=== PATIENT | male | born 1980 | race African-American/Black ===

== ENCOUNTER 2016-07-09 22:04 | Inpatient (IN) | payer OTHER ==
[~2016-07-09] VITALS: Ht 177.8 cm; Wt 86.2 kg
--- NOTE | ~2016-07-09 | H ---
[facility] [address] [place] [address] HISTORY AND PHYSICAL Name: GWYN TEIXEIRA Room #: 533-P ADM IN M.R.#: [id number] Admission: 07/10/16 Attend Phys: Minh Barcenas MD Discharge: Date of : 78 Report #: [id number] THIS REPORT FOR: //name// CC: FAM unknown Minh Barcenas DATE OF SERVICE: 07/10/2016 CHIEF COMPLAINT: Intractable back pain. HISTORY OF PRESENT ILLNESS: The patient is a 36-year-old male who has had prior back surgery. He states he was at work yesterday when fell on to his buttocks in his low back. He states he has had severe worsening pain in his left leg with any kind of movement causes severe pain. Also, had some burning and tingling underneath the foot. PAST MEDICAL HISTORY: Significant for: 1. Intractable back pain. 2. Asthma. Apparently had an MN in the past and apparently has had a seizure in the past, although he is not taking any medicines for that. MEDICATIONS: Only aspirin 81 mg a day. ALLERGIES: No known drug allergies. SOCIAL HISTORY: He is a nonsmoker, nondrinker, no recreational drugs. REVIEW OF SYSTEMS: CONSTITUTIONAL: No fever or chills. HEENT: No headaches or visual changes. CHEST: No chest pain, tightness in chest, shortness of breath, cough or sputum production. GASTROINTESTINAL: No nausea, vomiting, diarrhea or constipation. GENITOURINARY: No burning or frequency. EXTREMITIES: He has intractable back pain and left leg pain. No focal weakness or numbness. He has pain with straight leg raise. PHYSICAL EXAMINATION: VITAL SIGNS: Blood pressure 145/92, his pulse is 105, his respiratory rate is 16. His O2 sats are 100% on room air. GENERAL: The patient is awake, alert, in no acute distress. He does have some significant back pain. HEENT: His mucous membranes are moist. NECK: Supple, without adenopathy, thyromegaly or bruits. CHEST: Clear to auscultation. CARDIOVASCULAR: Regular, without murmur. [facility] [address] [place] [address] HISTORY AND PHYSICAL Name: GWYN TEIXEIRA Room #: 533-P [facility] IN .R.#: [id number] Admission: 07/10/16 Attend Phys: Minh Barcenas MD Discharge: Date of : 79 Report #: [id number] ABDOMEN: Soft, no masses. Bowel sounds are active. EXTREMITIES: The left leg shows severe discomfort with mild palpation in the bottom of the foot. He has severe pain with straight leg raise even an inch off the bed. He cannot flex the knee and flex the hip. He can move the feet equally. He has hyperesthesia in the bottom of the foot. otherwise intact. A CT scan of his lumbar spine was done which shows no acute fracture. There is disc bulge noted at L4-L5 and L5-S1. An MRI has not been obtained at this point. ASSESSMENT: Acute intractable back pain with history of prior back problems, suspect disc bulging versus herniation. PLAN: We will give him IV Solu-Medrol, IV pain meds and get MRI to see if he needs any further intervention. His surgeon was at [facility]. If he does emergent, we may transfer from there, although he does not appear to be an emergency case as he has no focal weakness, numbness or bowel incontinence. By: [id number] Bijan Hankins MD /nt
--- NOTE | ~2016-07-09 | H ---
[facility] [address] [address] HISTORY AND PHYSICAL Name: GWYN TEIXEIRA Room #: 533-P ADM IN M.R.#: [id number] Admission: 07/10/16 Attend Phys: Minh Barcenas MD Discharge: Date of : 79 Report #: [id number] THIS REPORT FOR: //name// CC: FAM unknown Minh Barcenas ATTENDING PHYSICIAN: Minh Barcenas MD PRIMARY CARE PHYSICIAN: Dr. Delgado. CHIEF COMPLAINT: Severe back pain. HISTORY OF PRESENT ILLNESS: The patient is a 36-year-old -[place] male with a history of chronic back pain. He had an injury at work in 2013 and that injured his lumbar spine. He ended up having surgery in 2014. At the time of that surgery they told him at some point he was going to need surgery on his L5-S1, but he never did have that surgery and has continued to have back pain with radiculopathy symptoms for the last few years. He always has some numbness of the left leg. He always has some shooting pains down his left leg intermittently. He also has feeling of pins and needles in his left foot as well as some testicular pain. He had been on pain medications as well as Neurontin regularly for the last few years, but he quit all his meds 3-4 months ago because he really did not feel like anything was working. He sees the neurosurgeon at [facility] as well as pain specialist there. He was turned off by future surgery because he said that 2 doctors were not agreeing on what sort of further treatment he should have. He said one doctor wanted to do surgery and another one wanted to place pain stimulator instead. He had a fall yesterday in which he was walking and his left leg gave out. He landed on his left hip. Since then, he has had more severe lumbar pain and left leg pain. His says she is worried about him because he has been losing weight and does not eat much. He says he has no appetite because he is always in pain. He initially came in the ER, rating his pain 10/10. He now rates his pain 7/10 after pain medication was given in the ER. The patient denies any loss of bladder or bowel control. He is unable to walk due to pain. PAST MEDICAL HISTORY: Asthma, hypertension. PAST SURGICAL HISTORY: Lumbar surgery 2014, tonsillectomy. ALLERGIES: None. HOME MEDICATIONS: Aspirin 81 mg daily. SOCIAL HISTORY: The patient is on disability since his surgery. He lives at home with his . Denies any tobacco, alcohol or drug use. FAMILY HISTORY: His mother is alive with diabetes and history of breast cancer. [address] [address] HISTORY AND PHYSICAL Name: GWYN TEIXEIRA Room #: 533-P [facility] IN M.R.#: [id number] Admission: 07/10/16 Attend Phys: Minh Barcenas MD Discharge: Date of : 79 Report #: [id number] Father is and had a cerebral aneurysm. REVIEW OF SYSTEMS: Twelve point review of systems was reviewed with the patient and otherwise negative unless stated in the HPI. PHYSICAL EXAMINATION: GENERAL: The patient is an alert male in no acute distress. VITAL SIGNS: Temperature is 37.1, heart rate 86, respirations 16, blood pressure is 145/92, oxygen 100% on room air. HEENT: PERRLA. Sclerae are nonicteric. Oral mucosa is pink and moist. NECK: Supple, no JVD noted. CARDIAC: Normal S1, S2. No murmurs, rubs or gallops. RESPIRATORY: Breath sounds are clear bilaterally. No wheezing or rhonchi. Breathing is nonlabored. ABDOMEN: Soft, nontender, nondistended with positive bowel sounds. VASCULAR: No edema noted. Pedal pulses are 2+. NEUROLOGIC: The patient is alert and oriented x 3. Speech is clear. He does have difficulty with left straight leg raise because of severe low back pain. There is decreased sensation in his left foot. Pedal pulses are 2+ bilaterally and I did not have him ambulate. SKIN: Intact. No rashes or lesions. LABS AND DIAGNOSTICS: No labs had been obtained. CT was done in the ER. It shows no fractures. There is mild disc bulging of L4-L5 and L5-S1. ASSESSMENT AND PLAN: 1. Acute on chronic lumbar pain with left leg radiculopathy. We will check an MRI in the morning. Based on the severity of the MRI, we may need to have neurosurgery evaluate. He is open to getting another opinion regarding having further surgery on his back or not. Continue with pain control. We will add scheduled ibuprofen as well as prednisone daily and continue muscle relaxer and restart Neurontin. 2. Hypertension. He is not on any current meds for this. Continue to monitor. 3. Deep venous thrombosis prophylaxis, place sequential compression devices. We will continue to follow the patient closely throughout the hospitalization and make changes based on clinical status. <ELECTRONICALLY SIGNED> By: SELMA Velasquez 07/11/16 0518 [id number] [id number] Leslie Baptiste, BOAT RENTAL CLERK /nt
[~2016-07-09 22:04] MED LIST: ADULT LOW DOSE81 MG PO
[2016-07-09 22:08] VITALS: BP 145/92
[2016-07-10 01:20] VITALS: BP 143/99
[2016-07-10 01:30] VITALS: BP 148/88
[2016-07-10 06:35] LABS: HEMATOCRIT 45.4 % (42.0-52.0); HEMOGLOBIN 14.8 gm/dL (14.0-18.0); MCH 28.8 pg (26.0-34.0); MCHC 32.6 g/dL (28.0-37.0); MCV 88.4 fL (80.0-100.0); RBC 5.14 mil/uL (4.50-6.00); RDW 12.4 % (10.5-14.5); WBC 7.8 thou/uL (4.0-11.0)
[2016-07-10 06:54] LABS: CALCIUM 9.8 mg/dL (8.5-10.1); CREATININE 1.2 mg/dL (0.7-1.3); POTASSIUM 4.1 mmol/L (3.5-5.1)
[2016-07-10 07:19] VITALS: BP 156/80
[2016-07-10 16:44] VITALS: BP 185/97
[2016-07-10 20:00] VITALS: BP 152/79
[2016-07-11 04:00] VITALS: BP 139/70
[2016-07-11 07:24] VITALS: BP 128/78
[2016-07-11] MEDS ORDERED: ZANAFLEX4 MG PO (12:12)
[2016-07-11] MEDS ORDERED: IBUPROFEN 600600 M1 PO (12:12)
[2016-07-11] MEDS ORDERED: OXYCODONE HCL 55 MG PO (12:12)
[2016-07-11] MEDS ORDERED: MEDROLDOSEPACK PO (12:12)
[2016-07-11] MEDS ORDERED: NEURONTIN 300300 M1 PO (12:12)
[2016-07-11 12:18] VITALS: BP 128/78
== END 2016-07-11 13:55 | disposition home or self-care (01) | DRG 552 ==
LOC: ER 22:04 → EROBS 07-10 01:02 → 5S 07-10 01:02
PROVIDERS: Nurse Practitioner Acute Care
DX: M51.17 Intervertebral disc disorders with radiculopathy, lumbosacral region (principal); G89.29 Other chronic pain; M54.9 Dorsalgia, unspecified; I10 Essential (primary) hypertension; J45.909 Unspecified asthma, uncomplicated; M54.5 Low back pain; Z79.82 Long term (current) use of aspirin; Z83.3 Family history of diabetes mellitus; Z82.49 Family history of ischemic heart disease and other diseases of the circulatory system; Z80.3 Family history of malignant neoplasm of breast; I25.2 Old myocardial infarction
CPT/HCPCS: 10086

== ENCOUNTER → 2016-07-15 | Outpatient (CLI) | payer OTHER ==
[~2016-07-15] VITALS: Ht 175.3 cm; Wt 88.5 kg
[~2016-07-15] MED LIST changes: +IBUPROFEN 600600 M1 PO; +MEDROLDOSEPACK PO; +NEURONTIN 300300 M1 PO; +OXYCODONE HCL 55 MG PO; +ZANAFLEX4 MG PO
--- NOTE | ~2016-07-15 | HPC ---
[facility] [address] [place] [address] PAIN MANAGEMENT CONSULTATION Name: GWYN TEIXEIRA Room #: REG [facility] Sandhya#: [id number] Admission: 07/15/16 Attend Phys: Derrell Cota DO Discharge: Date of : 79 Report #: [id number] THIS REPORT FOR: //name// CC: [facility] physician/PCP Derrell Cota DATE OF SERVICE: 07/15/2016 HISTORY OF PRESENT ILLNESS: The patient is a 36-year-old gentleman, seen in consultation at the request of Dr. Hankins for evaluation of pain, low back and left leg. The patient presents to pain clinic today with his . We reviewed his ongoing history. The patient and his pieced his medical history together; he does present with no medical records other than from [facility] earlier this year. 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 In March 2013, he states he had acute exacerbation of pain, was taken via ambulance to the work compensation physician. He was never admitted to hospital, he was treated conservatively. It appears that he has been on disabililty since this time. About one-year later, he ultimately had a left L4-L5 hemilaminectomy at [facility]. He states that he really got no better following the surgery. [facility], it sounds like he had epidural injections, trigger point injections, TENS unit, and physical therapy. Ultimately, he discontinued treatment in November or December 2015. He states his pain was "manageable." Unfortunately, the pain did exacerbate without antecedent trauma or overuse earlier this year. He drove to the hospital and apparently, on 07/09/2016, when he got out of his car, his left leg gave out and he fell striking his back increasing the acute exacerbation of pain for which he was seeking help. He was admitted to the hospital for a short course. MRI was accomplished. He was discharged with a Medrol Dosepak, ibuprofen, tizanidine, and oxycodone. He presents to pain clinic today complaining of pain primarily low back, posterior buttock radiating to the left testicle, posterior aspect of his leg into his left foot with paresthesia in the sole of his foot. He rates his pain quite high at 7/10 on a 0-10 visual analog scale. Describes continuous, burning, shooting, aching, sharp, stabbing, and tender pain. Notes the pain is exacerbated with any and all movement. Medication has afforded some relief. He is seen in the company of his who is supportive. He is a bit diaphoretic throughout the exam secondary to pain. REVIEW OF SYSTEMS: Attached in the chart and gone over with the patient. He does not smoke, drink alcohol to excess. History of hypertension, on no [facility] [address] [place] [address] PAIN MANAGEMENT CONSULTATION Name: GWYN TEIXEIRA Room #: REG [facility] Sandhya#: [id number] Admission: 07/15/16 Attend Phys: Derrell Cota DO Discharge: Date of : 79 Report #: [id number] medications for same. Otherwise, enjoyed reasonably good health other than his chronic axial and lumbar radicular pain. He has been medically disabled since the initial injury of 2013. Only surgery with the aforementioned left L4-L5 hemilaminectomy in March 2014. Pain impact score is 57/70. PHYSICAL EXAMINATION: GENERAL: Reveals 5 feet 9 inches and 195 pounds gentleman. BMI is 28.8 kilograms per meter squared. Blood pressure is elevated at 172/101, pulse 99, respirations are 18, and room air oxygen saturation is 99%. NEUROLOGIC: Cranial nerves 2-12 are grossly intact. HEENT: Pupils are equal, reactive to light and accommodation. Extraocular muscles are intact. There is no nystagmus. Lateral gaze deviation. NECK: Cervical range of motion is full. Thyroid is unremarkable. MUSCULOSKELETAL: Upper extremity strength is 4-5/5 to all muscle groups tested, but resistance testing does exacerbate low back pain. HEART: Regular rate and rhythm without murmur. LUNGS: Clear to auscultation. EXTREMITIES: He has difficulty bearing weight on the left side. Markedly antalgic gait. Left dorsiflexion strength is dramatically limited 0-1. Lower extremity extension on the left is 2/5, hip flexion is 2-3/5. Plantar flexion is little better, perhaps 3/5. Right leg is much stronger 4/5 to all muscle groups tested. Patellar reflexes with isometric contractions 1/4 and symmetric. Achilles reflex absent on the left, 1/4 on the right. Straight leg raise is grossly positive bilaterally, much more reactive on the left than the right. SKIN: Integument is intact. DIAGNOSTIC STUDIES: I have reviewed the diagnostic findings including CT of the lumbar spine from 07/09/2016 noting L4-L5 to have bony abnormalities suggestive of previous left L4-L5 laminectomy. Subsequent MRI of the lumbar spine, 07/11/2016, notes L4-L5 to have disk desiccation with a broad-based disk bulge, left greater than right, disk abutting the ventral thecal sac, but without significant stenosis. No other dramatic abnormalities were found. ASSESSMENT: Symptomatic lumbar radiculopathy status post decompressive laminectomy with a fairly significant L4-L5 radicular pain pattern. The patient does not appear to be malingering. He is tachycardic and diaphoretic with the exam and he appeared to cooperate with the exam. RECOMMENDATIONS: 1. Discussion with the patient and his today about therapeutic options. We will continue nonsteroidal anti-inflammatory medication (ibuprofen 600 mg t.i.d.). I did offer renewal of his short acting opiate, oxycodone 5 mg 1 to 2 tablets up to 4 times a day, limit 100 tablets for 30 days. 2. We will proceed with epidural injection under fluoroscopy today given neural [address] [address] PAIN MANAGEMENT CONSULTATION Name: GWYN TEIXEIRA Room #: [facility] [id number] Admission: 07/15/16 Attend Phys: Derrell Cota DO Discharge: Date of : 79 Report #: [id number] tensioning symptoms and compromise on the MRI, however, modest. 3. Given the modest findings in the MRI, I would like an EMG of the left lower extremity to make sure we are not overlooking any other pathology including compromise in the lumbosacral plexus. Thank you for allowing me to participate in the patient's care, I will keep you abreast of his progress. PROCEDURE: Lumbar epidural injection under fluoroscopy. PROCEDURE NOTE: After both written and informed consent to include risk of spinal cord damage, increased pain, weakness and dural puncture, the patient was taken to the fluoroscopy suite, placed in the prone position. After sterile prep and drape, a skin wheal with lidocaine was raised. A 22-gauge epidural Tuohy needle was inserted in the midline at L4-L5 with good loss to resistance. Negative aspiration for cerebrospinal fluid or blood was noted. Then 1 mL of Omnipaque under biplanar fluoroscopy showed good spread within the epidural space. This was followed with 80 mg of triamcinolone plus 1 mL of 1.5% preservative-free Xylocaine, 0.5 mL Xylocaine was then injected to flush the needle; it was removed. The patient was monitored for an appropriate period of time and discharged in good and stable condition. <ELECTRONICALLY SIGNED> By: Derrell Cota DO 07/18/16 0806 [id number] Derrell Cota DO /nt
[2016-07-15 14:39] VITALS: BP 172/101
== END ==
LOC: PAIN 12:11
DX: M54.16 Radiculopathy, lumbar region (principal); I10 Essential (primary) hypertension

== ENCOUNTER → 2016-09-26 | Outpatient (CLI) | payer OTHER ==
[~2016-09-26] VITALS: Ht 177.8 cm; Wt 87.0 kg
[2016-09-26 14:02] VITALS: BP 159/93
== END | disposition home or self-care (01) ==
LOC: PAIN 08-05 05:49
DX: M54.16 Radiculopathy, lumbar region (principal); Z98.890 Other specified postprocedural states; M79.1 Myalgia; G62.9 Polyneuropathy, unspecified; I10 Essential (primary) hypertension; M48.06 Spinal stenosis, lumbar region

== ENCOUNTER → 2016-11-02 | Outpatient (CLI) | payer OTHER ==
[~2016-11-02] VITALS: Ht 177.8 cm; Wt 86.3 kg
[~2016-11-02] MED LIST changes: +AMITRIPTYLINE H25 M2 PO; +AMLODIPINE BESY10 MG PO; +COLACE100 MG PO; +PROBIOTIC1 EAC1 PO; +ZESTRIL20 MG PO
--- NOTE | ~2016-11-02 | HPC ---
[facility] [place] [address] [place] [address] PAIN MANAGEMENT CONSULTATION Name: GWYN TEIXEIRA [id number] Admission: 11/02/16 Attend Phys: Jolene Mora MD Discharge: Date of : 79 Report #: [id number] THIS REPORT FOR: //name// CC: [facility] physician/PCP Jolene FAULKNER DATE OF SERVICE: 11/02/2016 FOLLOWUP HISTORY: Mid and low back pain down into the buttocks, left leg, all the way to the foot, walking with a walker. FOLLOWUP HISTORY: The patient is a 36-year-old gentleman who has been seen in the pain clinic because of lumbar radiculopathy. He has undergone epidural steroid injection and continues to have pain, which is quite problematic. He is scheduled to undergo EMG evaluation in the near future. He was unable to go to his previously scheduled appointment. His sister . He has had surgery in the past. He has been told that he has a reherniation of the L4-L5 area. He also is experiencing some pain and discomfort down into his testicles. He notes weakness and buckling of his left leg. He describes the discomfort as 7-8. Pain is made worse by walking, standing, bending and other movements. He describes it as burning, shooting, aching, sharp, stabbing tenderness, numbness, tingling, which is radiating and throbbing down into his leg. IMPRESSION: 1. Symptomatic lumbar radiculopathy status post decompression laminectomy with ongoing L4 radicular pain with weakness. 2. Neuropathic pain syndrome. 3. Myelopathic lumbar radicular symptoms. 4. Weakness of left leg, L4 nerve distribution. 5. Hypertension. RECOMMENDATION: 1. The patient is scheduled to have an EMG of the lower extremities. This has been rescheduled. 2. We will renew his oxycodone, gabapentin. We will also start Elavil 25 mg 1 p.o. at bedtime to help with the lancinating and shooting pain, which he is experiencing. He will call us if he has any problems with the medications. We would like to thank you for letting us participate in his care. We hope he continues to improve. By: [id number] Jolene Mora MD /shawn
[2016-11-02 09:49] VITALS: BP 146/95
== END | disposition home or self-care (01) ==
LOC: PAIN 10-24 06:39
DX: Z76.0 Encounter for issue of repeat prescription (principal); M50.20 Other cervical disc displacement, unspecified cervical region; M54.16 Radiculopathy, lumbar region; M62.81 Muscle weakness (generalized); I10 Essential (primary) hypertension; Z98.890 Other specified postprocedural states

== ENCOUNTER → 2016-12-01 | Outpatient (CLI) | payer OTHER ==
[~2016-12-01] VITALS: Ht 177.8 cm; Wt 86.5 kg
[~2016-12-01] MED LIST changes: +TRILEPTAL150 MG PO
--- NOTE | ~2016-12-01 | HPC ---
[facility] [place] [address] PAIN MANAGEMENT CONSULTATION Name: GWYN TEIXEIRA Room #: REG Fabrice Arthur#: [id number] Admission: 12/01/16 Attend Phys: Derrell Cota DO Discharge: Date of : 78 Report #: [id number] THIS REPORT FOR: //name// CC: [facility] physician/PCP Derrell Cota The patient is a 36-year-old gentleman being treated for lumbar radiculopathy status post decompressive laminectomy. Last seen in the pain clinic on 11/02/2016, we wrote for an EMG at that time. Returns to the pain clinic today, was seen for prolonged visit from 10:20-10:50. Greater than 50% of the visit was spent counseling the patient. He had had back surgery (left L4-L5 hemilaminectomy in March 2014). He had injured his back 1 year prior in March 2013, work related injury. Following the surgery in March 2014, he states he really never got much better though on further inquiry, he notes he had had bilateral lumbar radiculopathy and actually the right leg did get better following the surgery. He has had ongoing left leg electric type pain. We did an epidural injection when I first saw him on ____. In followup September 26, the patient noted that the epidural injection only afforded transient relief, specifically noting he "felt much better," but pain relief only helped for 1-1/2 weeks. At that visit, he still had ongoing significant pain, which he rated at 7 on a VAS, had subjective weakness on the left leg, noting he had fallen several times. Noted hyperpathia and allodynia of the foot. We reviewed his MRI from 07/11/2016, which noted L4-L5 had had a small broad-based disk bulge, left greater than right, foraminal components resulting in moderate left and mild right neural foraminal narrowing. L5-S1 noted a minor disk bulge without significant changes. With ongoing symptoms, I ordered EMG of left lower extremity. This was obtained. EMG from 11/25/2016, the needle EMG of the left lower extremity was essentially unremarkable. Lumbosacral paracentral muscles were not performed because of a prior decompressive laminectomy. PHYSICAL EXAMINATION: Today shows a pleasant 36-year-old gentleman frustrated with ongoing pain. Rates his pain at 7-8 on a VAS. Moderately antalgic gait. Blood pressure is little bit elevated at 154/90, pulse 96, respirations 18. He does have hyperpathia on the sole of the left foot, ____ diminished 2-point discrimination from about the ankle down in a sock-like fashion on the left foot. Right lower extremity is unremarkable. Positive straight leg raise at about 30 degrees on the left side. Diminished strength to dorsiflexion and plantarflexion on the left side. Lower extremity extension and hip flexion cause little bit of pain, but are generally symmetric. He is complaining of left testicular pain, which is episodic and lancinating pain on the left leg, which is episodic with burning dysesthesia. Hyperpathia and allodynia in the left foot; however, is chronic. [address] [address] PAIN MANAGEMENT CONSULTATION Name: GWYN TEIXEIRA Room #: REG CAREY Arthur#: [id number] Admission: 12/01/16 Attend Phys: Derrell Cota DO Discharge: Date of : 78 Report #: [id number] ASSESSMENT: At this point is neuropathic pain, complex regional pain syndrome type 1 (reflex sympathetic dystrophy) in a gentleman status post lumbar decompressive laminectomy with ongoing neuropathic pain. RECOMMENDATIONS: Long discussion with the patient and his today about therapeutic options. He is currently on a therapeutic dose of a calcium channel membrane stabilizing agent (gabapentin at 1800 mg a day), using oxycodone 5 mg p.r.n. up to 4 a day. We will start on amitriptyline 25 mg at bedtime with really no efficacy, that agent was started last month, we will discontinue it due to lack of efficacy. Today, we elected to start Trileptal 150 mg, gradually titrating to t.i.d. We talked about therapeutic options including lumbar sympathetic block. We will seek authorization for same. Again, the patient has neuropathic pain, compatible with CRPS type 1 on left lower extremity. He has failed conservative therapy including decompressive surgery, lumbar epidural injection, physical therapy, membrane stabilizing agents. We will likely try and do a series of two to three injections over a short course. If this affords good relief, we will continue medication management. If, however, he does not have adequate relief, we will likely move forward with spinal cord stimulator trial. The patient was discharged in good and stable condition after prolonged visit. Again, we started Trileptal today. We will seek authorization for left lumbar sympathetic block at earliest possible date. We will likely try and get a series of three injections over a very short course, i.e. 7-10 days. By: [id number] Derrell Cota DO /nt
[2016-12-01 10:03] VITALS: BP 154/90
== END ==
LOC: PAIN 06:09
DX: M54.16 Radiculopathy, lumbar region (principal)

== ENCOUNTER → 2016-12-05 | Outpatient (CLI) | payer OTHER ==
[~2016-12-05] VITALS: Ht 177.8 cm; Wt 87.3 kg
--- NOTE | ~2016-12-05 | HPC ---
[facility] [address] [place] [place] [address] PAIN MANAGEMENT CONSULTATION Name: GWYN TEIXEIRA Room #: REG CL Sandhya#: [id number] Admission: 12/05/16 Attend Phys: Derrell Cota DO Discharge: Date of : 78 Report #: [id number] THIS REPORT FOR: //name// CC: [facility] physician/PCP Derrell Cota The patient is a very pleasant 36-year-old gentleman being treated for symptomatic lumbar radiculopathy status post decompressive laminectomy with onset of fairly significant complex regional pain syndrome left lower extremity, status post lumbar laminectomy. Last visit, 12/01/2016, we elected to move forward with a series of lumbar sympathetic blocks. If this does not afford adequate relief, we will consider a spinal cord stimulator trial. The patient presents to pain clinic today for his initial injection. He notes the pain remains problematic in left leg, hyperpathia, allodynia. Subjective pain score is 7-8 on a VAS. PROCEDURE NOTE: Left lumbar sympathetic block under fluoroscopy. PROCEDURE: After written informed consent was obtained, the patient was taken to fluoroscopy suite, placed in prone position. After sterile prep and drape, skin wheal was raised. A 6 inch #22-gauge Chiba needle was placed to contact the inferior aspect of the L2 vertebral body from a left paramedian approach. With a biplanar fluoroscopy, needle was walked into the anterior most portion of vertebral body. Negative aspiration was accomplished. A 1 mL of Omnipaque was injected, which showed spread within the lumbar sympathetic gutter on AP and lateral projections. A 5 mL 0.5% preservative-free bupivacaine plus 5 mL of 1.5% preservative-free Xylocaine with 1:200,000 epinephrine plus 40 mg triamcinolone was injected. Needle was then withdrawn, area was cleansed, Band-Aid was applied. The patient monitored for an appropriate period of time, discharged in good and stable condition, noting subjective warmth in the left leg and foot. Follow up on Monday for lumbar sympathetic block #[address] Angel Mora and follow up on Monday for lumbar sympathetic block #3 with myself. Fluoroscopy time was under 20 seconds. By: [id number] Derrell Cota DO /nt
[2016-12-05 13:16] VITALS: BP 131/95
== END | disposition home or self-care (01) ==
LOC: PAIN 07:20
DX: M54.16 Radiculopathy, lumbar region (principal); G90.522 Complex regional pain syndrome I of left lower limb; Z98.890 Other specified postprocedural states; Z79.82 Long term (current) use of aspirin; Z79.899 Other long term (current) drug therapy

== ENCOUNTER → 2016-12-07 | Outpatient (CLI) | payer OTHER ==
[~2016-12-07] VITALS: Ht 177.8 cm; Wt 88.0 kg
--- NOTE | ~2016-12-07 | HPC ---
[facility] [place] [address] PAIN MANAGEMENT CONSULTATION Name: GWYN TEIXEIRA [id number]: 12/07/16 Attend Phys: Jolene Mora MD Discharge: Date of : 78 Report #: [id number] THIS REPORT FOR: //name// CC: [facility] physician/PCP Jolene Hankins MD DATE OF SERVICE: 12/16/2016 CHIEF COMPLAINT: Pain in the left leg. Still having difficulty walking and standing on it. FOLLOWUP HISTORY: The patient is a 36-year-old gentleman who has been seen in the pain clinic because of chronic pain involving his left leg. He is having symptoms consistent with complex regional pain syndrome. He underwent a lumbar sympathetic block a couple of days ago. He did note some change in his condition. He noted that for the first time in a long time, he noticed some warmth down into his leg. The patient has returned today for another lumbar sympathetic block. PHYSICAL EXAMINATION: Blood pressure is 142/97, pulse 83, respiratory rate 18, room air saturation is 100, height 5 feet 10 inches, weight 194 pounds, BMI is 27. The patient has pain and discomfort in the right leg with note of swelling, allodynia, hyperpathia and described the pain as 7/10. IMPRESSION: Chronic regional pain syndrome involving the left leg. RECOMMENDATIONS: We discussed treatment options with the patient. We have discussed lumbar sympathetic block by way of a lumbar sympathetectomy. He elects to proceed. PROCEDURE NOTE: The patient was placed in the prone position. Fluoroscopy was used to identify the L2 vertebral body. A skin wheal was placed. A 6 inch 22-gauge Chiba needle was then advanced into the anterior as expected the L2 vertebral body. Using a paramedian approach, the needle was placed in the appropriate position. Biplanar imaging was used. After aspiration a total of 1 mm opaque contrast was injected. After appropriate spread was noted, a total of 5 mL of 0.5% preservative free bupivacaine was injected and followed by 1.5 mL 5% Xylocaine free epi with 1:200,000 concentration. Total of 40 mg triamcinolone was injected as well. The needle was withdrawal. The patient was then taken and monitored in the recovery area for an appropriate amount of time. He remained in the pain clinic for an appropriate [place] [address] PAIN MANAGEMENT CONSULTATION Name: GWYN TEIXEIRA Room #: REG CAREY Arthur#: [id number] Admission: 12/07/16 Attend Phys: Jolene Mora MD Discharge: Date of : 78 Report #: [id number] follow up with Dr. Cota in the near future. Possibility of dorsal column stimulator have been discussed. By: [id number] Jolene Mora MD /PMT
[2016-12-07 11:05] VITALS: BP 142/97
== END | disposition home or self-care (01) ==
LOC: PAIN 07:17
DX: G90.522 Complex regional pain syndrome I of left lower limb (principal)

== ENCOUNTER → 2017-01-05 | Outpatient (CLI) | payer OTHER ==
[~2017-01-05] VITALS: Ht 177.8 cm; Wt 82.7 kg
--- NOTE | ~2017-01-05 | HPC ---
[facility] [place] [place] [address] PAIN MANAGEMENT CONSULTATION Name: GWYN TEIXEIRA Room #: REG [facility] Sandhya#: [id number] Admission: 01/05/17 Attend Phys: Derrell Cota DO Discharge: Date of : 79 Report #: [id number] THIS REPORT FOR: //name// CC: [facility] physician/PCP Derrell Cota The patient is a 36-year-old gentleman, being treated for lumbar radiculopathy, status post decompressive laminectomy, RSD left lower extremity, requiring high risk complex medication management. I gave him an initial lumbar sympathetic block on 12/05/2016. The block was repeated by Dr. Mora 12/07/2016. The patient states that following the second block, he had some increased pain in the left testicle. Ultimately 20 days later, he presented to the [facility] ER (12/27/2016). Reviewing their notes, it appears they felt he had an infection, they gave him ceftriaxone IV and 1000 mg of oral azithromycin. He returns to pain clinic today. Noting pain continues in the left low back radiating to the groin with burning dysesthesia down the left leg. Gait is impacted. PHYSICAL EXAMINATION: Essentially unchanged from presentation, ongoing neuropathic pain, complex regional pain syndrome, left lower extremity, status post lumbar decompressive laminectomy. Long discussion with the patient and his today about therapeutic options. The patient is continuing with Trileptal 150 mg b.i.d., gabapentin 300 mg 2 tablets 3 times a day, tizanidine 4 mg t.i.d. for spasm and oxycodone 5 mg 1 tablet 2-4 a day. We talked at length about a spinal cord stimulator as a possible therapeutic option if he fails current interventional therapies. We have elected to repeat lumbar sympathetic block today. Follow up in 4 weeks for reevaluation. We reviewed the fact that opiate medications are being used to provide analgesia adequate to support activities of daily living, not attempting to achieve a specific pain score on the 0-10 Visual Analog Scale. The current opiate medications are providing sufficient analgesia to allow the patient to participate in activities of daily living. The patient is not exhibiting any aberrant behavior suggestive of drug diversion. The patient is not having any adverse reactions to medications. The patient is not suffering from daytime somnolence or mental acuity changes. The patient is managing opiate-induced constipation with appropriate epfv-kgo-hfodccv agents and dietary considerations. The patient was counseled on concern for caution with operating a motor vehicle while using opiate medications. A physical exam was performed and the patient's functional status was evaluated. All patients with back pain were advised against the bed rest greater than 4 days and were advised to return to normal activities. Pain score assessment was [address] [address] PAIN MANAGEMENT CONSULTATION Name: GWYN TEIXEIRA Room #: REG CLFabrice Arthur#: [id number] Admission: 01/05/17 Attend Phys: Derrell Cota DO Discharge: Date of : 79 Report #: [id number] noted and the treatment plan was reviewed with the patient. All current medications, both prescribed and OTC were reviewed and reconciled on the electronic medical record. Tobacco screening was accomplished and smoking cessation was advised when indicated. BMI was noted and diet/exercise modification was recommended for all patients following outside normal parameters. I reviewed with the patient today their responsibilities to safeguard prescription medications, reviewed their responsibility to utilize medications only as prescribed by the physician. They are to seek and receive pain medications only from 1 physician group ( [facility]). They are to use 1 pharmacy and keep the clinic informed if they change pharmacies. Their responsibilities include making followup visits in a timely fashion and to avoid abrupt discontinuation of medication usage. Their responsibilities further include bringing their medications (bottles from the pharmacy with residual pills) to the visit for possible confirmation of pill counts and the patient understands it is their responsibility to submit to random drug screens to ensure both that the medications prescribed are present, and that no other controlled substances are present. All prescriptions provided today were generated electronically. ASSESSMENT: Symptomatic lumbar radiculopathy, status post decompressive laminectomy, reflex sympathetic dystrophy, left lower extremity; neuropathic pain, high risk complex medication management. RECOMMENDATIONS: 1. I renewed oxycodone 5 mg 1 tablet 3-4 times a day, limit 100 tablets for 30 days. I renewed Trileptal, gabapentin, and tizanidine, doses as noted above. 2. The patient was given contact information for psychological evaluation as required by most third democrat payers for spinal cord stimulator trial. We reviewed spinal cord stimulator mechanism of action, indications and risks and benefits. The patient was given current video literature regarding spinal cord stimulator (high RV IDro). 3. Lumbar sympathetic block under fluoroscopy today. PROCEDURE NOTE: Lumbar sympathetic block under fluoroscopy. PROCEDURE: After written informed consent was obtained, the patient was taken to fluoroscopy suite, placed in prone position. After sterile prep and drape, skin wheal was raised. A 22-gauge 6-inch Chiba needle was placed from a left paramedian approach contacting the L2 vertebral body inferior aspect and walked anteriorly. A transaortic approach was used. 1 mL of Omnipaque was injected, which showed spread within the periaortic sympathetic gutter, this was followed with 5 mL of 0.5% preservative-free bupivacaine, 5 mL of 1.5% preservative-free Xylocaine with 1:200,000 epi and 40 mg triamcinolone. Needle was removed, the [facility] [address] [place] [address] PAIN MANAGEMENT CONSULTATION Name: GWYN TEIXEIRA [facility] [id number] Admission: 01/05/17 Attend Phys: Derrell Cota DO Discharge: Date of : 79 Report #: [id number] area was cleansed, Band-Aids applied. The patient was monitored for an appropriate period of time, discharged in good and stable condition. <ELECTRONICALLY SIGNED> By: Derrell Cota DO 01/06/17 0926 1700 2138 Derrell Cota DO /nt
[2017-01-05 09:40] VITALS: BP 141/92
== END | disposition home or self-care (01) ==
LOC: PAIN 12-09 06:56
DX: M54.16 Radiculopathy, lumbar region (principal); Z98.890 Other specified postprocedural states; G90.522 Complex regional pain syndrome I of left lower limb; G62.9 Polyneuropathy, unspecified

== ENCOUNTER → 2017-03-02 | Outpatient (CLI) | payer OTHER ==
[~2017-03-02] VITALS: Ht 177.8 cm; Wt 87.5 kg
[~2017-03-02] MED LIST changes: +PERCOCET 10-321 EACH PO; +VENTOLIN HFA 1818 GM INH
--- NOTE | ~2017-03-02 | HPC ---
[address] [address] PAIN MANAGEMENT CONSULTATION Name: GWYN TEIXEIRA Room #: REG [facility] MVasquez.#: [id number] Admission: 03/02/17 Attend Phys: Derrell Cota DO Discharge: Date of : 78 Report #: [id number] THIS REPORT FOR: //name// CC: [facility] physician/PCP Derrell Cota The patient is a very pleasant 36-year-old gentleman being treated for neuropathic pain status post lumbar decompressive laminectomy, ongoing neuropathic pain, left L4 distribution, having failed conservative therapy. We are planning on moving forward with a spinal cord stimulator, he has an appointment on 03/07/[address] Alma Sykes. Assuming there are no impediments to moving forward, we will plan on a spinal cord stimulator trial likely early next year. He has been using Percocet and tizanidine for pain, Percocet 10/325 one tablet 3-4 times a day and tizanidine t.i.d. He takes gabapentin 300 mg 3 times a day all with nominal efficacy. PHYSICAL EXAMINATION: Today is unchanged, pleasant 36-year-old gentleman. BMI is 27.7 kilograms per meter squared. Vital signs are stable. Markedly antalgic gait, decreased strength with ongoing radicular pain in the left L4 radicular pattern. ASSESSMENT: Symptomatic lumbar radiculopathy, neuropathic pain, status post decompressive laminectomy requiring high risk complex medication management. RECOMMENDATION: Renew Percocet 10/325 up to 3 times a day, increase tizanidine 4 mg from 3 to 4 a day for breakthrough pain, taken the liberty of writing for 3 months of current medication. Follow up for spinal cord stimulator trial FARHAD. Discharged in good stable condition. <ELECTRONICALLY SIGNED> By: Derrell Cota DO 03/03/17 0943 1533 0318 Derrell Cota DO /nt
[2017-03-02 14:07] VITALS: BP 147/87
== END ==
LOC: PAIN 02-17 06:48
DX: M54.16 Radiculopathy, lumbar region (principal); M79.2 Neuralgia and neuritis, unspecified; Z98.890 Other specified postprocedural states; Z79.899 Other long term (current) drug therapy

== ENCOUNTER → 2017-04-07 | Outpatient (CLI) | payer OTHER ==
[~2017-04-07] VITALS: Ht 177.8 cm; Wt 86.8 kg
[~2017-04-07] MED LIST changes: +NORCO 5-325 TA1 EACH PO; +SENNA-DOCUSATE1 EACH PO
--- NOTE | ~2017-04-07 | HPC ---
[facility] [place] [address] PAIN MANAGEMENT CONSULTATION Name: GWYN TEIXEIRA Room #: REG [facility] MBarbara.#: [id number] Admission: 04/07/17 Attend Phys: Derrell Cota DO Discharge: Date of : 78 Report #: [id number] THIS REPORT FOR: //name// CC: [facility] physician/PCP Derrell Cota The patient is a 37-year-old gentleman being treated for neuropathic pain, left lower extremity, status post decompressive laminectomy. The patient has failed conservative therapy (anti-seizure membrane stabilizing agents). He is not to my knowledge a further surgical candidate (revision back surgery). He has had ongoing left radicular pain; we trialed a series of sympathetic blocks, the patient received only transient relief. We talked about moving forward with spinal cord stimulator. He has seen Dr. Alma Sykes, has a followup appointment, we are awaiting for evaluation prior to requesting authorization for spinal cord stimulator trial. The patient presents to pain clinic today noting with cold weather, he is having more lancinating pain on the back of the left leg. He rates his pain as a 7-8 on a VAS, radiating into the back of the leg, foot and into his testicle. PHYSICAL EXAMINATION: Unchanged from prior visits. A 37-year-old gentleman. BMI is 27.5 kilograms per meter squared. Blood pressure modestly elevated at 163/96, pulse 77, respirations of 16. Rises from chair using armrest, antalgic gait favoring the left leg. Lower extremity strength is diminished, left greater than right. Positive straight leg raise on the left. Diffuse neuropathic pain, left lower extremity. We reviewed the fact that opiate medications are being used to provide analgesia adequate to support activities of daily living, not attempting to achieve a specific pain score on the 0-10 Visual Analog Scale. The current opiate medications are providing sufficient analgesia to allow the patient to participate in activities of daily living. The patient is not exhibiting any aberrant behavior suggestive of drug diversion. The patient is not having any adverse reactions to medications. The patient is not suffering from daytime somnolence or mental acuity changes. The patient is managing opiate-induced constipation with appropriate jxrj-adf-zbfhalc agents and dietary considerations. The patient was counseled on concern for caution with operating a motor vehicle while using opiate medications. A physical exam was performed and the patient's functional status was evaluated. All patients with back pain were advised against the bed rest greater than 4 days and were advised to return to normal activities. Pain score assessment was noted and the treatment plan was reviewed with the patient. All current medications, both prescribed and OTC were reviewed and reconciled on the electronic medical record. Tobacco screening was accomplished and smoking cessation was advised when indicated. BMI was noted and diet/exercise modification was recommended for all patients following outside normal [address] [address] PAIN MANAGEMENT CONSULTATION Name: GWYN TEIXEIRA Room #: REG CL Sandhya#: [id number] Admission: 04/07/17 Attend Phys: Derrell Cota DO Discharge: Date of : 78 Report #: [id number] parameters. I reviewed with the patient today their responsibilities to safeguard prescription medications, reviewed their responsibility to utilize medications only as prescribed by the physician. They are to seek and receive pain medications only from 1 physician group ( [facility]). They are to use 1 pharmacy and keep the clinic informed if they change pharmacies. Their responsibilities include making followup visits in a timely fashion and to avoid abrupt discontinuation of medication usage. Their responsibilities further include bringing their medications (bottles from the pharmacy with residual pills) to the visit for possible confirmation of pill counts and the patient understands it is their responsibility to submit to random drug screens to ensure both that the medications prescribed are present, and that no other controlled substances are present. All prescriptions provided today were generated electronically. ASSESSMENT: Lumbar radiculopathy, status post decompressive laminectomy and neuropathic pain, requiring high risk complex medication management. RECOMMENDATION: Increase Percocet 10/325 from 3 to 4 a day, increase Trileptal from 150 mg b.i.d. to t.i.d., to use concurrent with gabapentin 300 mg 2 tablets t.i.d. Follow up FARHAD once we get authorization for spinal cord stimulator trial. Otherwise, follow up in 4 weeks to evaluate efficacy of medication changes. <ELECTRONICALLY SIGNED> By: Derrell Cota DO 04/10/17 0816 0914 1739 Derrell Cota DO /nt
[2017-04-07 08:12] VITALS: BP 163/96
== END ==
LOC: PAIN 06:46
DX: M54.16 Radiculopathy, lumbar region (principal); M96.1 Postlaminectomy syndrome, not elsewhere classified; Z79.899 Other long term (current) drug therapy

== ENCOUNTER 2017-09-28 17:27 | Emergency (ER) | payer OTHER ==
[~2017-09-28] VITALS: Ht 177.8 cm; Wt 81.7 kg
[~2017-09-28 17:27] MED LIST changes: -NORCO 5-325 TA1 EACH PO; -SENNA-DOCUSATE1 EACH PO
[2017-09-28 18:19] LABS: BASOPHILS 1.5 % (0.0-2.0); EOSINOPHILS 1.6 % (0.0-3.0); HEMATOCRIT 43.1 % (42.0-52.0); HEMOGLOBIN 14.6 gm/dL (14.0-18.0); LYMPHOCYTES 47.5 % (24.0-44.0); MCH 30.1 pg (26.0-34.0); MCHC 33.9 g/dL (28.0-37.0); MCV 88.8 fL (80.0-100.0); MONOCYTES 7.7 % (1.0-8.0); PLATELET COUNT 204 thou/uL (150-400); POLYS 41.7 % (36.0-66.0); RBC 4.85 mil/uL (4.50-6.00); RDW 12.4 % (10.5-14.5); WBC 4.8 thou/uL (4.0-11.0)
[2017-09-28 18:33] LABS: CALCIUM 9.3 mg/dL (8.5-10.1); CREATININE 1.2 mg/dL (0.7-1.3); POTASSIUM 3.6 mmol/L (3.5-5.1)
[2017-09-28] MEDS ORDERED: SENNA-DOCUSATE1 EACH PO (21:33)
[2017-09-28] MEDS ORDERED: NORCO 5-325 TA1 EACH PO (21:33)
[2017-09-28 22:01] VITALS: BP 158/100
== END 2017-09-28 22:30 | disposition home or self-care (01) ==
LOC: ER 17:27
PROVIDERS: Emergency Medicine
DX: M54.5 Low back pain (principal); G89.29 Other chronic pain

== ENCOUNTER 2019-04-02 14:16 | Emergency (ER) | payer OTHER ==
[~2019-04-02] VITALS: Ht 177.8 cm; Wt 90.7 kg
[~2019-04-02 14:16] MED LIST changes: +NORCO 5-325 TA1 EACH PO; +SENNA-DOCUSATE1 EACH PO
[2019-04-02 16:09] LABS: ABSOLUTE NEUTROPHILS 5.2 thou/uL (1.4-8.2); BASOPHILS 0.6 % (0.0-2.0); EOSINOPHILS 0.2 % (0.0-3.0); HEMATOCRIT 46.8 % (42.0-52.0); LYMPHOCYTES 14.1 % (24.0-44.0); MCH 29.1 pg (26.0-34.0); MCHC 32.1 g/dL (28.0-37.0); MCV 90.7 fL (80.0-100.0); PLATELET COUNT 234 thou/uL (150-400); POLYS 74.1 % (36.0-66.0); RBC 5.16 mil/uL (4.50-6.00); RDW 12.6 % (10.5-14.5); WBC 7.1 thou/uL (4.0-11.0)
[2019-04-02 16:17] LABS: CALCIUM 10.5 mg/dL (8.5-10.1); CREATININE 1.3 mg/dL (0.7-1.3); POTASSIUM 3.7 mmol/L (3.5-5.1)
[2019-04-02 16:23] LABS: ALBUMIN 4.7 g/dL (3.4-5.0); TOTAL BILIRUBIN 0.5 mg/dL (<0.1-1.0); TOTAL PROTEIN 8.8 g/dL (6.4-8.2)
[2019-04-02] MEDS ORDERED: PROMETH-CODEIN 65 ML PO (20:46)
[2019-04-02] MEDS ORDERED: TAMIFLU75 MG PO (20:46)
[2019-04-02 21:01] VITALS: BP 152/80
--- NOTE | 2019-04-04 17:10 | EKG ---
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
--- NOTE | 2019-04-04 17:12 | EKG ---
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
== END 2019-04-02 21:10 | disposition home or self-care (01) ==
LOC: ER 14:16
PROVIDERS: Physician Assistant
DX: R05 Cough (principal); R06.02 Shortness of breath

== ENCOUNTER 2020-09-09 05:40 | Emergency (ER) | payer OTHER ==
[~2020-09-09] VITALS: Ht 177.8 cm; Wt 86.2 kg
[~2020-09-09 05:40] MED LIST changes: +PROMETH-CODEIN 65 ML PO; +TAMIFLU75 MG PO
[2020-09-09 05:41] VITALS: BP 141/103
[2020-09-09] MEDS ORDERED: NEURONTIN 300M300 M2 PO (05:59)
[2020-09-09] MEDS ORDERED: PERCOCET PO (05:59)
[2020-09-09] MEDS ORDERED: PREDNISONE 20 M20 MG PO (05:59)
== END 2020-09-09 06:32 | disposition home or self-care (01) ==
LOC: ER 05:40
DX: M54.9 Dorsalgia, unspecified (principal); G89.29 Other chronic pain; I10 Essential (primary) hypertension; J45.909 Unspecified asthma, uncomplicated; Z79.899 Other long term (current) drug therapy; Z98.890 Other specified postprocedural states; Z79.82 Long term (current) use of aspirin